=== PATIENT | male | born 1970 | race African-American/Black ===

== ENCOUNTER 2020-02-16 15:26 | Inpatient (IN) | payer OTHER ==
[2020-02-16 17:51] VITALS: BMI 23.0
--- NOTE | 2020-02-16 18:01 | HP ---
CIWA Score Nausea/Vomitin-Mild Nausea/No Vomiting Muscle Tremors: 3 Anxiety: 2 Agitation: 3 Paroxysmal Sweats: 1-Minimal Palms Moist Orientation: 0-Oriented Tacttile Disturbances: 0-None Auditory Disturbances: 0-None Visual Disturbances: 0-None Headache: 2-Mild CIWA-Ar Total Score: 12 - Admission Criteria OASAS Guidelines: Admission for Medically Managed Detox: Requires at least one of the followin. CIWA greater than 12 2. Seizures within the past 24 hours 3. Delirium tremens within the past 24 hours 4. Hallucinations within the past 24 hours 5. Acute intervention needed for co occurring medical disorder 6. Acute intervention needed for co occurring psychiatric disorder 7. Severe withdrawal that cannot be handled at a lower level of care (continued vomiting, continued diarrhea, abnormal vital signs) requiring intravenous medication and/or fluids 8. Patient presents the following: CIWA greater than 12 Admission Criteria Met: Admission criteria met Admission ROS BHS - HPI Chief Complaint: pt here for alcohol detox Allergies/Adverse Reactions: Allergies Allergy/AdvReac Type Severity Reaction Status Date / Time No Known Allergies Allergy Verified 02/16/20 18:08 History of Present Illness: 49 yo with homeless male, says he came here for alcohol detox. Pt states he h/o thalassemia- takes iron and MVI, folic acid alcohol- 1 pint- 3 pints/day- Vodka- no h/o seizures or DT. THC- occasional cocaine- $200-300/day amphetamines- denies Benzo- denies, but states he had been to a hospital recently- refused to get details Utox- THC, edith, met, Amp, BZO JENNIFER-0 Exam Limitations: No Limitations - Ebola screening Have you traveled outside of the country in the last 21 days: No Have you had contact with anyone from an Ebola affected area: No Have you been sick,other than usual withdrawal symptoms: No Do you have a fever: No - Review of Systems Constitutional: No Symptoms Reported EENT: reports: No Symptoms Reported Respiratory: reports: No Symptoms reported Cardiac: reports: No Symptoms Reported GI: reports: No Symptoms Reported : reports: No Symptoms Reported Musculoskeletal: reports: No Symptoms Reported Integumentary: reports: No Symptoms Reported Neuro: reports: No Symptoms reported Endocrine: reports: No Symptoms Reported Hematology: reports: No Symptoms Reported Psychiatric: reports: No Sypmtoms Reported (denies) Other Systems: Reviewed and Negative Patient History - Patient Medical History Hx Anemia: Yes (thalassemia) - PPD History Documented Results: Positive w/proof (INH X 9 months) - Smoking Cessation Smoking history: Current every day smoker Have you smoked in the past 12 months: Yes Aproximately how many cigarettes per day: 10 Hx Chewing Tobacco Use: No Initiated information on smoking cessation: Yes 'Breaking Loose' booklet given: 02/16/20 Admission Physical Exam BHS - Vital Signs Vital Signs: Vital Signs - 24 hr 02/16/20 17:48 Temperature 97.7 F Pulse Rate 64 Respiratory 18 Rate Blood Pressure 123/80 - Physical General Appearance: Yes: Within Normal Limits, Irritable HEENTM: Yes: Within Normal Limits, Hearing grossly Normal, Normal Voice Respiratory: Yes: Within Normal Limits, Lungs Clear Neck: Yes: Within Normal Limits Cardiology: Yes: Within Normal Limits, Regular Rhythm, Regular Rate Abdominal: Yes: Within Normal Limits Genitourinary: Yes: Within Normal Limits Back: Yes: Normal Inspection Musculoskeletal: Yes: Within Normal Limits Extremities: Yes: Within Normal Limits Neurological: Yes: Within Normal Limits Integumentary: Yes: Within Normal Limits Lymphatic: Yes: Within Normal Limits - Diagnostic (1) Positive PPD, treated Current Visit: Yes Status: Acute (2) Alcohol use disorder Current Visit: Yes Status: Acute (3) Cannabis use disorder, mild, abuse Current Visit: Yes Status: Acute (4) Cocaine use disorder Current Visit: Yes Status: Acute (5) Thal trait Current Visit: Yes Status: Acute Breathalyzer - Breathalyzer Breathalyzer: 0 Urine Drug Screen - Test Device Lot number: [id number] Expiration date: 08/24/21 - Control Is test valid?: Yes - Results Drug screen NEGATIVE: No Urine drug screen results: THC-Marijuana, EDITH-Cocaine, MET-Methamphetamine, AMP- Amphetamines, BZO-Benzodiazepines Inpatient Rehab Admission - Rehab Decision to Admit Inpatient rehab admission?: No
[2020-02-16] MEDS ORDERED: MENTHOL/PHENOL 1 EACH UD MM PRN (18:09)
[2020-02-16] MEDS ORDERED: NICOTINE POLACRILEX 2 MG GUM BUC PRN (18:09)
[2020-02-16] MEDS ORDERED: ONDANSETRON *ODT* 4 MG TABLET SL PRN (18:09)
[2020-02-16] MEDS ORDERED: ACETAMINOPHEN 325 MG TABLET (FP) PO PRN ×2 (18:09)
[2020-02-16] MEDS ORDERED: BISMUTH SUBSALICYLATE 524 MG/30 ML UD PO PRN (18:09)
[2020-02-16] MEDS ORDERED: MAGNESIUM CITRATE 300 ML BOTTLE PO PRN (18:09)
[2020-02-16] MEDS ORDERED: METHOCARBAMOL 500 MG TABLET PO PRN (18:09)
[2020-02-16] MEDS ORDERED: MAG HYDROX/AL HYDROX/SIMETH 30 ML UNIT-DOSE CUP PO PRN (18:09)
[2020-02-16] MEDS ORDERED: IBUPROFEN 400 MG TABLET (FP) PO PRN (18:09)
[2020-02-16] MEDS ORDERED: MAGNESIUM HYDROX 2400MG/30ML ORAL SUSPENSION 30 ML CUP PO PRN (18:09)
[2020-02-16] MEDS ORDERED: chlordiazePOXIDE HCL 25 MG CAPSULE PO PRN (18:10)
--- NOTE | 2020-02-16 18:59 | BHS.RME ---
Substance Use & Tx History - Substance Use History Alcohol Substance amount: 1-2 pints vodka/day Frequency of use: Daily Substance route: Oral Date of Last Use: 02/15/20 Physical/Psych/Mental Status - Behavior Eye Contact: Normal - Cooperativeness Cooperativeness: Reluctant - Thinking Thought Processes: Goal Directed Thought content: Future oriented - Physical Health Problems Is patient presently having any pain?: No Does patient presently have any injuries (include location): No Does patient currently have a fever: No Is patient : No CIWA Nausea/Vomitin-Mild Nausea/No Vomiting Muscle Tremors: 3 Anxiety: 2 Agitation: 3 Paroxysmal Sweats: 1-Minimal Palms Moist Orientation: 0-Oriented Tacttile Disturbances: 0-None Auditory Disturbances: 0-None Visual Disturbances: 0-None Headache: 2-Mild CIWA-Ar Total Score: 12
[2020-02-16] MEDS: hydrOXYzine PAMOATE 25 MG CAPSULE (FP) PO SCH (22:58)
[2020-02-16] MEDS: THIAMINE HCL 100 MG TABLET (FP) PO SCH (22:58)
[2020-02-16] MEDS: MELATONIN 5 MG TABLETS PO SCH (22:58)
[2020-02-16] MEDS: chlordiazePOXIDE HCL 25 MG CAPSULE PO SCH (22:59)
[2020-02-17] MEDS: chlordiazePOXIDE HCL 25 MG CAPSULE PO SCH ×4 (06:45→22:28)
[2020-02-17] MEDS: hydrOXYzine PAMOATE 25 MG CAPSULE (FP) PO SCH ×2 (06:46→12:02)
--- NOTE | 2020-02-17 09:55 | EKG ---
Test Reason : Blood Pressure : / mmHG Vent. Rate : 060 BPM Atrial Rate : 060 BPM P-R Int : 178 ms QRS Dur : 096 ms QT Int : 462 ms P-R-T Axes : 079 059 061 degrees QTc Int : 462 ms NORMAL SINUS RHYTHM NONSPECIFIC T WAVE ABNORMALITY PROLONGED QT ABNORMAL ECG NO PREVIOUS ECGS AVAILABLE Confirmed by ELIDIA RIVAS MD ([id number]) on 02/17/2020 9:55:45 AM Referred By: Confirmed By:ELIDIA RIVAS MD
[2020-02-17 10:11] LABS: HEMATOCRIT 29.5 % (35.4-49); HEMOGLOBIN 8.6 GM/dL (11.7-16.9); MCHC 29.3 g/dl (32.0-35.9); MEAN CELL VOLUME 59.3 fl (80-96); MEAN PLT VOLUME 8.7 fl (7.5-11.1); PLATELET COUNT 419 K/MM3 (134-434); RBC 4.97 M/mm3 (4.00-5.60); RDW 21.7 % (11.9-15.9)
[2020-02-17 10:13] LABS: MCH 17.4 pg (25.7-33.7)
[2020-02-17 10:26] LABS: ALBUMIN 3.5 g/dl (3.4-5.0); BILIRUBIN,TOTAL 0.2 mg/dL (0.2-1); BLOOD UREA NITROGEN 20.2 mg/dL (7-18); CALCIUM 8.6 mg/dL (8.5-10.1); CREATININE 0.9 mg/dL (0.55-1.3); POTASSIUM 4.5 mmol/L (3.5-5.1); TOT PROT 6.6 g/dl (6.4-8.2)
[2020-02-17] MEDS: PRENATAL VITAMINS W/ FOLIC ACID TABLET (FP) PO SCH (11:00)
--- NOTE | 2020-02-17 12:58 | PN ---
S CIWA - CIWA Score Nausea/Vomitin-No Nausea/No Vomiting Muscle Tremors: 3 Anxiety: 2 Agitation: 2 Paroxysmal Sweats: 3 Orientation: 0-Oriented Tacttile Disturbances: 0-None Auditory Disturbances: 0-None Visual Disturbances: 0-None Headache: 0-None Present CIWA-Ar Total Score: 10 S Progress Note (SOAP) Subjective: sweats shakes body aches interrupted sleep Objective: 02/17/20 12:56 Vital Signs Temperature 97.3 F L 02/17/20 08:48 Pulse Rate 61 02/17/20 08:48 Respiratory Rate 18 02/17/20 08:48 Blood Pressure 116/70 02/17/20 08:48 O2 Sat by Pulse Oximetry (%) 100 02/17/20 05:28 Laboratory Tests 02/16/20 02/17/20 02/17/20 07:00 07:00 07:00 WBC 5.0 RBC 4.97 Hgb 8.6 L Hct 29.5 L MCV 59.3 L MCH 17.4 L MCHC 29.3 L RDW 21.7 H Plt Count 419 MPV 8.7 Sodium 143 Potassium 4.5 Chloride 108 H Carbon Dioxide 31 Anion Gap 4 L BUN 20.2 H Creatinine 0.9 Est GFR (CKD-EPI)AfAm 115.02 Est GFR (CKD-EPI)NonAf 99.24 Random Glucose 78 Calcium 8.6 Total Bilirubin 0.2 AST 16 ALT 15 Alkaline Phosphatase 56 Total Protein 6.6 Albumin 3.5 Syphilis Serology Non-reactive labs noted low H:H noted elevated BUN aaox3 lying in bed no acute distres Assessment: 02/17/20 12:57 withdrawals Plan: continue detox increase fluids repeat labs iron supplement tid
[2020-02-17] MEDS: FERROUS SO4 325 MG TABLET (FP) PO SCH (17:06)
[2020-02-17] MEDS: THIAMINE HCL 100 MG TABLET (FP) PO SCH (22:28)
[2020-02-17] MEDS: MELATONIN 5 MG TABLETS PO SCH (22:29)
[2020-02-18] MEDS: chlordiazePOXIDE HCL 25 MG CAPSULE PO SCH ×4 (06:14→22:22)
[2020-02-18] MEDS: FERROUS SO4 325 MG TABLET (FP) PO SCH ×3 (07:48→17:46)
--- NOTE | 2020-02-18 10:54 | PN ---
BHS CIWA - CIWA Score Nausea/Vomitin-No Nausea/No Vomiting Muscle Tremors: 2 Anxiety: 1-Mildly Anxious Agitation: 1-Slight > Activity Paroxysmal Sweats: 1-Minimal Palms Moist Orientation: 0-Oriented Tacttile Disturbances: 0-None Auditory Disturbances: 0-None Visual Disturbances: 0-None Headache: 0-None Present CIWA-Ar Total Score: 5 BHS Progress Note (SOAP) Subjective: irritable sweats Objective: 02/18/20 10:53 Vital Signs Temperature 98.0 F 02/18/20 09:00 Pulse Rate 55 L 02/18/20 09:00 Respiratory Rate 19 02/18/20 09:00 Blood Pressure 103/53 L 02/18/20 09:00 O2 Sat by Pulse Oximetry (%) 99 02/18/20 09:00 Laboratory Tests 02/16/20 02/16/20 02/17/20 07:00 18:56 07:00 WBC 5.0 RBC 4.97 Hgb 8.6 L Hct 29.5 L MCV 59.3 L MCH 17.4 L MCHC 29.3 L RDW 21.7 H Plt Count 419 MPV 8.7 Sodium Potassium Chloride Carbon Dioxide Anion Gap BUN Creatinine Est GFR (CKD-EPI)AfAm Est GFR (CKD-EPI)NonAf Random Glucose Calcium Total Bilirubin AST ALT Alkaline Phosphatase Total Protein Albumin Syphilis Serology Non-reactive COVID-19 (JADYN) Not detected 02/17/20 07:00 WBC RBC Hgb Hct MCV MCH MCHC RDW Plt Count MPV Sodium 143 Potassium 4.5 Chloride 108 H Carbon Dioxide 31 Anion Gap 4 L BUN 20.2 H Creatinine 0.9 Est GFR (CKD-EPI)AfAm 115.02 Est GFR (CKD-EPI)NonAf 99.24 Random Glucose 78 Calcium 8.6 Total Bilirubin 0.2 AST 16 ALT 15 Alkaline Phosphatase 56 Total Protein 6.6 Albumin 3.5 Syphilis Serology COVID-19 (JADYN) labs noted aaox3 lying in bed no acute distress Assessment: 02/18/20 10:54 withdrawals Plan: continue detox
[2020-02-18] MEDS: PRENATAL VITAMINS W/ FOLIC ACID TABLET (FP) PO SCH (11:16)
--- NOTE | 2020-02-18 12:28 | PN ---
[facility] Progress Note Note: RN reports that pt fell after walking out of the shower. Pt states he slipped and didn't hit his head. Pt was made aware that the policy is to send pt to our ED for CT scan for an unwitnessed fall. However, pt refused to have a CT scan done, refused assessment from inspector automatic typewriter and states I am only here for detox and I want to be left alone. Pt was made aware of the importance of the CT scan to make sure he did not develop a bleed in the head. Pt was also made aware if he refuses he will need to sign a refusal of medical treatment. Pt states he rather sign and not go to have a CT scan done. pt nurse Sherrill was made aware of pts' decision. However, Fall protocol #1 was initiated.
[2020-02-18] MEDS: THIAMINE HCL 100 MG TABLET (FP) PO SCH (22:22)
[2020-02-18] MEDS: MELATONIN 5 MG TABLETS PO SCH (22:22)
[2020-02-19] MEDS ORDERED: chlordiazePOXIDE HCL 10 MG CAPSULE PO PRN
[2020-02-19] MEDS: chlordiazePOXIDE HCL 10 MG CAPSULE PO SCH ×2 (06:55→11:21)
[2020-02-19] MEDS: FERROUS SO4 325 MG TABLET (FP) PO SCH (07:51)
[2020-02-19] MEDS: PRENATAL VITAMINS W/ FOLIC ACID TABLET (FP) PO SCH (11:21)
[2020-02-19 11:39] VITALS: BP 119/58; PULSE 55; TEMP 97.8
--- NOTE | 2020-02-19 17:47 | DS ---
[facility] Detox Discharge Summary Admission Date: 02/16/20 Discharge Date: 02/19/20 - History Present History: Alcohol Dependence, Cannabis Dependence, Cocaine Dependence Additional Comments: Despite efforts by LIGHT OIL OPERATOR and by Nursing and Counseling Staff to address Patient's medical needs / concerns, Patient does not wish to remain to complete detox regimen. Risks of leaving Detox Unit against medical advice and prior to completion of Detox Regimen explained to Patient. Patient advised to go immediately to nearest ER should any intolerable withdrawal / detox symptoms develop at any time. Follow-Up Prescription for Feosol (started for Patient while he was admitted on Detox Unit for Anemia noted on Detox Admission laboratory assessment) sent to [facility] ([place], [place]). Patient advised to slate picker prescription as soon as possible and to complete full course of medication as prescribed and to follow-up with Primary Care Medical Provider for further evaluation of Anemia noted on Detox Admission laboratory assessment. Patient verbalized understanding of all information / recommendations presented to him prior to departure from detox unit. Copies of results of all labs drawn while admitted for detox given to patient at time of discharge from detox unit. Pertinent Past History: History of Positive PPD, History of Thallasemia. - Physical Exam Results Vital Signs: Vital Signs Temperature 97.8 F 02/19/20 09:48 Pulse Rate 55 L 02/19/20 09:48 Respiratory Rate 16 02/19/20 09:48 Blood Pressure 119/58 L 02/19/20 09:48 O2 Sat by Pulse Oximetry (%) 100 02/19/20 09:48 Pertinent Admission Physical Exam Findings: WITHDRAWAL SYMPTOMS. Laboratory Tests 02/16/20 02/16/20 02/17/20 07:00 18:56 07:00 WBC 5.0 RBC 4.97 Hgb 8.6 L Hct 29.5 L MCV 59.3 L MCH 17.4 L MCHC 29.3 L RDW 21.7 H Plt Count 419 MPV 8.7 Sodium Potassium Chloride Carbon Dioxide Anion Gap BUN Creatinine Est GFR (CKD-EPI)AfAm Est GFR (CKD-EPI)NonAf Random Glucose Calcium Total Bilirubin AST ALT Alkaline Phosphatase Total Protein Albumin Syphilis Serology Non-reactive COVID-19 (JADYN) Not detected 02/17/20 07:00 WBC RBC Hgb Hct MCV MCH MCHC RDW Plt Count MPV Sodium 143 Potassium 4.5 Chloride 108 H Carbon Dioxide 31 Anion Gap 4 L BUN 20.2 H Creatinine 0.9 Est GFR (CKD-EPI)AfAm 115.02 Est GFR (CKD-EPI)NonAf 99.24 Random Glucose 78 Calcium 8.6 Total Bilirubin 0.2 AST 16 ALT 15 Alkaline Phosphatase 56 Total Protein 6.6 Albumin 3.5 Syphilis Serology COVID-19 (JADYN) Lab Results noted. - Medication Discharge Medications: Ambulatory Orders Ferrous Sulfate [Feosol] 325 mg PO TIDCM 7 Days #21 tablet 02/19/20 - Diagnosis (1) Anemia Status: Acute Qualifiers: Anemia type: unspecified type Qualified Code(s): D64.9 - Anemia, unspe cified (2) Alcohol use disorder Status: Acute (3) Cannabis use disorder, mild, abuse Status: Acute (4) Cocaine use disorder Status: Acute (5) Positive PPD, treated Status: Acute (6) Thal trait Status: Acute - AMA Did Patient Leave Against Medical Advice: Yes (Patient did not wish to remain to complete Detox Regimen.)
[2020-02-20] MEDS ORDERED: chlordiazePOXIDE HCL 10 MG CAPSULE PO SCH (05:00)
[2020-02-21] MEDS ORDERED: chlordiazePOXIDE HCL 10 MG CAPSULE PO ONE (05:00)
== END 2020-02-19 12:15 | disposition left against medical advice (07) | DRG 770 ==
LOC: YASAS 15:26 → Y6N 18:31
PROVIDERS: ADMIT Allergy & Immunology; ATTEND Allergy & Immunology
PROC: HZ2ZZZZ Detoxification Services for Substance Abuse Treatment (ICD-10-PCS; principal; 2020-02-16)
DX: F10.230 Alcohol dependence with withdrawal, uncomplicated (principal); F14.20 Cocaine dependence, uncomplicated; F12.20 Cannabis dependence, uncomplicated; F17.210 Nicotine dependence, cigarettes, uncomplicated; D64.9 Anemia, unspecified; D56.9 Thalassemia, unspecified; T14.90XA Injury, unspecified, initial encounter; W18.2XXA Fall in (into) shower or empty bathtub, initial encounter; Y93.E1 Activity, personal bathing and showering; Y92.231 Patient bathroom in hospital as the place of occurrence of the external cause; Y99.8 Other external cause status
CPT/HCPCS: 36415; 71046-TC-FY; 80053; 85027; 86780; 93005; 93010; U0003